=== PATIENT | female | born 1955 | race Two or more races ===

== ENCOUNTER 2018-01-13 22:13 | Emergency (ER) | payer OTHER ==
[~2018-01-13] VITALS: Ht 165.1 cm; Wt 54.4 kg
[2018-01-14] MEDS ORDERED: ZOFRAN ODT4 MG PO (04:13)
[2018-01-14] MEDS ORDERED: PROTONIX40 MG PO (04:13)
== END 2018-01-14 04:32 | disposition home or self-care (01) ==
LOC: ER 22:13
DX: T62.8X1A Toxic effect of other specified noxious substances eaten as food, accidental (unintentional), initial encounter (principal); R11.2 Nausea with vomiting, unspecified; E86.0 Dehydration; R00.0 Tachycardia, unspecified